=== PATIENT | male | born 1985 | race Caucasian/White ===

== ENCOUNTER 2025-09-08 11:16 | Observation (INO) ==
--- NOTE | 2025-09-08 12:01 | Emergency Department Note ---
Impression & Plan Cholecystitis, Umbilical hernia, Abdominal pain, Leukocytosis ED Provider Note NAME: CARLIE HURST AGE: 40 SEX: M : 1985 ARRIVES VIA: Walk-In INFORMANT: Patient ED PROVIDER(S): Coy Edward MD CHIEF COMPLAINT: Abdominal pain PLAN: Disposition: Admit MEDICAL DECISION MAKING: The patient is a pleasant 40-year-old gentleman with past medical history of umbilical hernia who presents to the emergency department, by his father for evaluation of abdominal pain with nausea and poor oral intake in setting of had increasing pain in his hernia site which has been protruding more than usual. Patient reports she has been moving his bowels daily with exception of today thus far. He denies vomiting. Denies fevers, cough, congestion. 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 On evaluation the patient no distress, afebrile with blood pressure 220s/150s with heart rate in the 100s in setting of discomfort and vital signs otherwise stable. Abdomen is soft and nondistended though does have protruding umbilical hernia which is soft without discoloration but with mild discomfort without discrete tenderness. Partial reduction of the hernia was achieved on initial assessment but hernia is still unable to be completely reduced. WBC 11K with neutrophilia but no left shift, nonspecific. H/H and platelets within normal limits. Chemistry without metabolic acidosis. Electrolytes and LFTs unremarkable. Lipase is not elevated. UA without evidence of infection. CT of the abdomen pelvis was completed and demonstrates gallbladder with wall thickening and Dennis cholecystic stranding/Dennis cholecystic fluid with several large gallstones within the lumen of the gallbladder. No definite biliary ductal dilatation by CT. Fat filled umbilical hernia is demonstrated without bowel involvement or obstruction. Upon reexamination the patient did report feeling improved in terms of the discomfort around his hernia but discrete right upper quadrant tenderness was more localizable. Antibiotic treatment for cholecystitis initiated with IV ceftriaxone and metronidazole. Case was discussed with Stephania Wu, general surgery PA-Js with Dr. Harman, general surgery on-call. Appreciate consultation. Patient will be admitted to the OR for surgery. Further management per general surgery. Triage Nursing notes reviewed and agree them. Prior/external medical records reviewed Vital Signs: reviewed Differential diagnosis: Appendicitis, testicular torsion, infections, diverticulitis, UTI, obstruction, mesenteric ischemia, aortic pathology, inflammatory bowel disease, renal colic, PUD, pancreatitis, biliary pathology, hernia, volvulus, constipation, as well as other pathologies. ER treatment provided: See below. Diagnostics interpreted by me: Cardiac Monitoring: An order for continuous cardiac monitoring was placed and demonstrated sinus tachycardia, 105 bpm, no ectopy. Laboratory studies: See below Imaging studies: See below Consultation(s): Stephania Wu, general surgery FABIANA with Dr. Harman, general surgery on-call. HPI: Per MDM. ROS: See above HPI for pertinent positives & negatives. A total of 10 systems reviewed and were otherwise negative. VITALS:See Below PHYSICAL EXAMINATION: GENERAL: Awake, alert, in no distress, BMI 39.3. HENT: Normocephalic, atraumatic. Oropharynx with dry mucous membranes and otherwise unremarkable. EYES: Normal conjunctiva. Sclera non-icteric. NECK: Supple. No nuchal rigidity. FROM. No JVD. RESPIRATORY: Clear to auscultation. CARDIAC: Tachycardic rate, normal rhythm. Extremities warm and well perfused. Pulses equal. ABDOMEN: Soft, non-distended, though does have protruding umbilical hernia which is soft without discoloration but with mild discomfort without discrete tenderness. Hernia is partially reducible. Right upper quadrant with point tenderness on reassessment. No guarding or rebound. MUSCULOSKELETAL: Chest examination reveals no tenderness. The back is symmetrical on inspection without obvious abnormality. There is no CVA tenderness to palpation. No joint edema. LOWER EXTREMITIES: Calves are equal size bilaterally and non-tender. No edema. No discoloration. NEURO: Normal sensorium. No sensory or motor deficits noted. SKIN: No rash or jaundice noted. Coy Edward MD Past Med/Surg History Problem List (Updated 09/08/25 @ 20:01 by Coy Edward MD) Leukocytosis (Acute) Abdominal pain (Acute) Cholecystitis (Acute) Umbilical hernia (Acute) Surgical History Hx of lithotripsy Family History Denies family history of Ovarian cancer Prostate cancer Myocardial infarction Breast cancer Colorectal cancer Social History Smoking Status: Never smoker Second Hand Exposure: Yes; Hx Alcohol Use: Yes Alcohol type: beer Alcohol Intake Frequency: 2-4 x/Month Hx Substance Use: No Preferred Language: [place] Communication Ability: Effective Visual Impairment: No Limitations Hearing Ability: Normal Roofing Laborer Required: No Beliefs That Will Affect Care: None marital status: Single Current Living Situation: Alone current occupational status: employed current occupation: [employer] How many Children do You have: 0 Feels Safe at Home: Yes Childhood Exposure to Second-Hand Smoke: Yes (mother smokes ) Diet: regular Diet Comment: regular caffeine: Yes during the past year weight has: remained stable Dental Care, Regularly: No Physical Activity Frequency: Daily Seatbelt Use: always Sunscreen Use: Yes Allergies Allergies Allergy/AdvReac Type Severity Reaction Status Date / Time codeine Allergy Unknown severe Verified 09/08/25 15:57 headache penicillin V Allergy Unknown itchy, Verified 09/08/25 15:57 hives as a child Home Meds Home Medications Medication Instructions Recorded Confirmed No Known Home Medications 01/28/23 09/08/25 Results & Data (ED) Vital Signs Vital Signs - 24 hr 09/08/25 11:20 09/08/25 12:14 09/08/25 12:14 Temperature 36.9 C Temperature Source Temporal Artery Scan Pulse Rate 105 H Pulse Rate [Apical] Pulse Rate [Right Finger] 80 Pulse Rhythm [Apical] Pulse Rhythm [Right Finger] Respiratory Rate 20 22 Respiratory Effort / Characteristics Non-Labored Spontaneous Respiratory Depth Normal Respiratory Pattern Blood Pressure 223/153 H Blood Pressure [Left Arm] Blood Pressure [Right Radial Artery] 192/132 H Blood Pressure Mean 176 Blood Pressure Mean [Left Arm] Blood Pressure Mean [Right Radial Artery] 152 Blood Pressure Position Sitting Blood Pressure Position [Left Arm] Pulse Oximetry 95 93 93 Oxygen Delivery Method Room Air Room Air Room Air Oxygen Flow Rate Sepsis Recent Fever Within 48 Hours No Sepsis New/Unexplained Change in Mental Status N/A Sepsis Action Taken by Nursing No Action Required 09/08/25 14:00 09/08/25 15:58 09/08/25 16:02 Temperature 37.2 C Temperature Source Oral Pulse Rate Pulse Rate [Apical] Pulse Rate [Right Finger] 88 94 H 89 Pulse Rhythm [Apical] Pulse Rhythm [Right Finger] Regular Respiratory Rate 16 20 20 Respiratory Effort / Characteristics Non-Labored Spontaneous Normal for Patient Respiratory Depth Normal Respiratory Pattern Regular Blood Pressure Blood Pressure [Left Arm] 187/127 H 174/113 H Blood Pressure [Right Radial Artery] 171/113 H Blood Pressure Mean Blood Pressure Mean [Left Arm] 147 133 Blood Pressure Mean [Right Radial Artery] 132 Blood Pressure Position Blood Pressure Position [Left Arm] Semi-fowlers Pulse Oximetry 96 95 96 Oxygen Delivery Method Room Air Room Air Room Air Oxygen Flow Rate Sepsis Recent Fever Within 48 Hours Sepsis New/Unexplained Change in Mental Status Sepsis Action Taken by Nursing 09/08/25 18:43 Temperature 37.3 C Temperature Source Temporal Artery Scan Pulse Rate Pulse Rate [Apical] 84 Pulse Rate [Right Finger] Pulse Rhythm [Apical] Regular Pulse Rhythm [Right Finger] Respiratory Rate 21 Respiratory Effort / Characteristics Non-Labored Spontaneous Respiratory Depth Normal Respiratory Pattern Regular Blood Pressure Blood Pressure [Left Arm] 127/91 Blood Pressure [Right Radial Artery] Blood Pressure Mean Blood Pressure Mean [Left Arm] 103 Blood Pressure Mean [Right Radial Artery] Blood Pressure Position Blood Pressure Position [Left Arm] Pulse Oximetry 94 Oxygen Delivery Method Oxymask Oxygen Flow Rate 12 Sepsis Recent Fever Within 48 Hours Sepsis New/Unexplained Change in Mental Status Sepsis Action Taken by Nursing Laboratory Data Attestation: I reviewed the patient's lab results. 09/08/25 11:38 09/08/25 11:38 Lab Results 09/08/25 09/08/25 Range/Units 11:38 13:24 WBC 11.03 H (4.8-10.8) K/ul RBC 5.19 (4.70-6.10) M/uL Hgb 15.8 (14.0-18.0) g/dL Hct 43.7 (42.0-52.0) % MCV 84.2 (80.0-100.0) fL MCH 30.4 (25.0-34.0) pg MCHC 36.2 H (32.0-36.0) g/dL RDW Std Deviation 35.8 L (36.4-46.3) fL RDW Coeff of Cristino 11.8 (11.5-14.5) % Plt Count 298 (130-400) K/uL MPV 9.5 (9.4-12.4) fL Immature Gran % (Auto) 0.3 % Neut % (Auto) 78.3 % Lymph % (Auto) 10.4 % [place] % (Auto) 9.1 % Eos % (Auto) 1.5 % Baso % (Auto) 0.4 % Neut # (Auto) 8.65 H (1.40-6.50) K/uL Lymph # (Auto) 1.15 L (1.20-3.40) K/uL [place]oup # (Auto) 1.00 H (0.11-0.59) K/uL Eos # (Auto) 0.16 (0.00-0.50) K/uL Baso # (Auto) 0.04 (0.00-0.20) K/uL Immature Gran # (Auto) 0.03 (0.01-0.20) K/uL PT 11.0 (9.0-12.0) Seconds INR 1.0 (0.9-1.1) Sodium 137 (136-145) mmol/L Potassium 3.7 (3.5-5.1) mmol/L Chloride 100 (98-107) mmol/L Carbon Dioxide 27 (21-32) mmol/L Anion Gap 10 (3-11) BUN 9 (6-23) mg/dl Creatinine 0.70 (0.6-1.4) mg/dl Est Cr Clr Drug Dosing 185.5 ml/min eGFR 119.46 BUN/Creatinine Ratio 12.9 (10-20) Glucose 122 H (70-99(Fasting)) mg/dl Calcium 9.5 (8.6-10.3) mg/dl Total Bilirubin 0.9 (0.2-1.0) mg/dl AST 19 (13-39) U/L ALT 25 (7-52) U/L Alkaline Phosphatase 82 (34-104) U/L Total Protein 8.2 (6.0-8.3) gm/dl Albumin 4.4 (3.4-5.0) gm/dl Globulin 3.8 (2.5-4.0) gm/dl Albumin/Globulin Ratio 1.2 (0.9-2) Lipase 5 L (11-82) U/L Urine Color Yellow Urine Appearance Clear (Clear) Urine pH 6.5 (4.5-7.5) Ur Specific [place] 1.013 (1.000-1.030) Urine Protein Trace H (Negative) Urine Glucose (UA) Negative (Negative) Urine Ketones 2+ H (Negative) Urine Blood 2+ H (Negative) Urine Nitrite Negative (Negative) Urine Bilirubin Negative (Negative) Urine Urobilinogen Negative (Negative) Ur Leukocyte Esterase Negative (Negative) Urine WBC (Auto) 0-5 (0-5) /hpf Urine RBC (Auto) 6-10 H (0-2) /hpf U Hyaline Cast (Auto) 0-2 (0-2) /lpf U Epithel Cells (Auto) 0-2 (0-2) /hpf Urine Bacteria (Auto) None Seen (None Seen) Urine Comment Administered Medications Discontinued Medications Bupivacaine HCl (Bupivacaine 0.5 % 5 Mg/1 Ml Mpf 30ml Vial) Confirm Administered Dose 30 ml .ROUTE .STK-MED ONE Stop: 09/08/25 16:27 Last Admin: 09/08/25 18:23 Dose: 30 ml Documented By: DARBY Bupivacaine Liposome (Bupivacaine Liposome 1.3% 266 Mg/20 Ml Vial) Confirm Administered Dose 266 mg .ROUTE .STK-MED ONE Stop: 09/08/25 18:18 Last Admin: 09/08/25 18:23 Dose: 266 mg Documented By: DARBY Sodium Chloride (Nss) 1,000 mls @ 999 mls/hr IV .Q1H1M ONE Stop: 09/08/25 12:57 Last Infusion: 09/08/25 13:22 Dose: Infused Documented By: Admin: 09/08/25 12:10 Dose: 999 mls/hr Documented By: SANTA Acetaminophen (Ofirmev) 1,000 mg in 100 mls @ 400 mls/hr IV NOW STA Stop: 09/08/25 12:11 Last Infusion: 09/08/25 13:22 Dose: Infused Documented By: Admin: 09/08/25 12:10 Dose: 400 mls/hr Documented By: SANTA Ceftriaxone Sodium (Rocephin) 2,000 mg in 50 mls @ 100 mls/hr IV NOW STA Stop: 09/08/25 14:55 Last Infusion: 09/08/25 17:11 Dose: Infused Documented By: Admin: 09/08/25 14:36 Dose: 100 mls/hr Documented By: SANTA Metronidazole (Flagyl) 500 mg in 100 mls @ 100 mls/hr IV NOW STA; Protocol Stop: 09/08/25 15:25 Last Infusion: 09/08/25 16:05 Dose: Infused Documented By: HBJesus Admin: 09/08/25 15:05 Dose: 100 mls/hr Documented By: CHAIM Lactated Ringer's (Lr) 1,000 mls @ 125 mls/hr IV .Q8H MARTÍN Stop: 09/11/25 14:44 Last Infusion: 09/08/25 19:43 Dose: Infused Documented By: Admin: 09/08/25 15:05 Dose: 125 mls/hr Documented By: CHAIM Indocyanine Green (Indocyanine Green 25 Mg Vial) 2.5 mg INJ ONE ONE Stop: 09/08/25 15:32 Last Admin: 09/08/25 15:48 Dose: 2.5 mg Documented By: HARIS Ioversol (Optiray 320 100ml) 94 ml IV ONCE ONE Stop: 09/08/25 13:36 Last Admin: 09/08/25 13:35 Dose: 94 ml Documented By: DANITA Morphine Sulfate (Morphine Sulfate 2 Mg/Ml Carp) 2 mg IV NOW STA Stop: 09/08/25 14:36 Last Admin: 09/08/25 19:43 Dose: Not Given Documented By: REBEKAH Ondansetron HCl (Ondansetron Inj 2 Mg/Ml 2 Ml Vial) 4 mg IV NOW STA Stop: 09/08/25 11:58 Last Admin: 09/08/25 12:10 Dose: 4 mg Documented By: SANTA Imaging Data Radiologist's Impression: Abdomen/Pelvis CT 09/08/25 11:[address] WITH IV CONTRAST CT DOSE: 1566.53 mGy.cm HISTORY: Acute generalized abdominal pain abd pain, umb hernia TECHNIQUE: Multiaxial CT images of the abdomen and pelvis were performed following the IV administration of 94 cc of Optiray, A dose lowering technique was utilized adhering to the principles of ALARA. COMPARISON STUDY: CT 11/25/2010 FINDINGS: Heart is upper limits of normal in size. There is mild nonspecific right hilar and subcarinal lymphadenopathy with lymph nodes measuring up to 11 mm. There is mild bibasilar atelectasis along with mild patchy subsegmental nodular consolidative foci. Probable mild fibrosis of the right lung base. No pneumatosis or pneumoperitoneum identified. Unremarkable spleen, pancreas and adrenal glands. Hepatic steatosis. Subcentimeter probable cyst of the hepatic dome. Patent portal vein. The gallbladder demonstrates wall thickening with pericholecystic stranding/trace pericholecystic fluid. There are several large gallstones within the lumen of the gallbladder. There is no definite biliary ductal dilation. Unremarkable kidneys. There is no hydronephrosis. There is mild urinary bladder wall thickening with partial distention. Probable small fat filled inguinal hernias. Fat filled umbilical hernia demonstrates opening of 3.2 cm's. Mild atherosclerosis of the aorta. 9 mm celiac trunk lymph node on image 113 series 3. No bowel obstruction or bowel wall thickening. Colonic diverticulosis without acute diverticulitis. Normal appendix. Unremarkable soft tissues. No acute fracture. IMPRESSION: 1. Cholelithiasis with findings suggestive of acute cholecystitis. 2. No biliary ductal dilation. 3. No bowel obstruction or bowel wall thickening. Normal appendix. 4. Mild bibasilar opacities are likely infectious or inflammatory. Follow-up recommended. 5. Small fat filled umbilical hernia. 6. Additional findings as above. ACT 112: Negative or not required by law. The above report was generated using voice recognition software. It may contain grammatical, syntax or spelling errors. Electronically signed by: Darien Varela M.D. 09/08/2025 1:55 PM Discharge Plan Visit Data Chief Complaint: Abdominal Pain Stated Complaint: STOMACH PAIN LAST COUPLE DAYS, WORSE, HAVE HERNIA ED Provider: Coy Edward Discharge Problem: Cholecystitis, Umbilical hernia, Abdominal pain, Leukocytosis Patient Disposition: Admitted As Inpatient Condition: Fair Discharge Instructions Interventions: ED Discharge Assessment Last Done: 09/08/25 15:36 Discharge Problem: Umbilical hernia Qualifiers: Obstruction and gangrene presence: without obstruction or gangrene Qualified Code(s): K42.9 - Umbilical hernia without obstruction or gangrene Abdominal pain Qualifiers: Abdominal location: unspecified location Qualified Code(s): R10.9 - Unspecified abdominal pain Leukocytosis Qualifiers: Leukocytosis type: unspecified Qualified Code(s): D72.829 - Elevated white blood cell count, unspecified
[2025-09-08] MEDS: ONDANSETRON INJ 2 MG/ML 2 ML VIAL IV STA (12:10)
[2025-09-08] MEDS: SODIUM CHLORIDE 0.9% 1,000 ML IV ONE (12:10)
[2025-09-08] MEDS: ACETAMINOPHEN 1,000 MG/100 ML VIAL IV STA (12:10)
[2025-09-08 12:12] LABS: Hematocrit (blood only) 43.7 % (42.0-52.0); Hemoglobin 15.8 g/dL (14.0-18.0); Immature Granulocytes # (auto) 0.03 K/uL (0.01-0.20); Immature Granulocytes % (auto) 0.3 %; Mean Corpuscular Hemoglobin 30.4 pg (25.0-34.0); Mean Corpuscular Volume 84.2 fL (80.0-100.0); Platelet Count 298 K/uL (130-400); RDW Standard Deviation 35.8 fL (36.4-46.3); Red Blood Count 5.19 M/uL (4.70-6.10); White Blood Count 11.03 K/ul (4.8-10.8)
[2025-09-08 12:43] LABS: Alanine Aminotransferase 25.0 U/L (7-52); Albumin Globulin Ratio 1.2 (0.9-2); Albumin Level 4.4 gm/dl (3.4-5.0); Alkaline Phosphatase 82.0 U/L (34-104); Anion Gap 10.0 (3-11); Bilirubin,Total 0.9 mg/dl (0.2-1.0); Blood Urea Nitrogen 9.0 mg/dl (6-23); Calcium 9.5 mg/dl (8.6-10.3); Carbon Dioxide 27.0 mmol/L (21-32); Chloride 100.0 mmol/L (98-107); Creatinine Clr Calc Pharmacy 185.5 ml/min; Globulin 3.8 gm/dl (2.5-4.0); Glucose 122.0 mg/dl (70-99(Fasting)); Lipase 5.0 U/L (11-82); Potassium 3.7 mmol/L (3.5-5.1); Sodium 137.0 mmol/L (136-145); Total Protein 8.2 gm/dl (6.0-8.3)
[2025-09-08 12:46] LABS: INR 1.0 (0.9-1.1); Prothrombin Time 11.0 Seconds (9.0-12.0)
[2025-09-08] MEDS: OPTIRAY 320 100ml IV ONE (13:35)
[2025-09-08 13:39] LABS: Appearance Urine Clear (Clear); Bacteria Urine Automated None Seen (None Seen); Cast Urine Automated 0-2 /lpf (0-2); Epithelial Cell Urine Auto 0-2 /hpf (0-2); Glucose Urine UA Negative (Negative); WBC Urine Automated 0-5 /hpf (0-5)
--- NOTE | 2025-09-08 13:56 | CT Scan Report ---
ABDOMEN AND PELVIS CT WITH IV CONTRAST CT DOSE: 1566.53 mGy.cm HISTORY: Acute generalized abdominal pain abd pain, umb hernia TECHNIQUE: Multiaxial CT images of the abdomen and pelvis were performed following the IV administrat ion of 94 cc of Optiray, A dose lowering technique was utilized adhering to the principles of ALARA. COMPARISON STUDY: CT 11/25/2010 FINDINGS: Heart is upper limits of normal in size. There is mild nonspecific right hilar and subcarin al lymphadenopathy with lymph nodes measuring up to 11 mm. There is mild bibasilar atelectasis along with mild patchy subsegmental nodular consolidative foci. Probable mild fibrosis of the right lung ba se. No pneumatosis or pneumoperitoneum identified. Unremarkable spleen, pancreas and adrenal glands. Hepatic steatosis. Subcentimeter probable cyst of t he hepatic dome. Patent portal vein. The gallbladder demonstrates wall thickening with pericholecysti c stranding/trace pericholecystic fluid. There are several large gallstones within the lumen of the g allbladder. There is no definite biliary ductal dilation. Unremarkable kidneys. There is no hydronephrosis. There is mild urinary bladder wall thickening with partial distention. Probable small fat filled inguinal hernias. Fat filled umbilical hernia [place] opening of 3.2 cm's. Mild atherosclerosis of the aorta. 9 mm celiac trunk lymph node on image 113 series 3. No bowel obstruction or bowel wall thickening. Colonic diverticulosis without acute divert iculitis. Normal appendix. Unremarkable soft tissues. No acute fracture. IMPRESSION: 1. Cholelithiasis with findings suggestive of acute cholecystitis. 2. No biliary ductal dilation. 3. No bowel obstruction or bowel wall thickening. Normal appendix. 4. Mild bibasilar opacities are likely infectious or inflammatory. Follow-up recommended. 5. Small fat filled umbilical hernia. 6. Additional findings as above. ACT 112: Negative or not required by law. The above report was generated using voice recognition software. It may contain grammatical, syntax o r spelling errors. Electronically signed by: Darien Varela M.D. 09/08/2025 1:55 PM
[2025-09-08] MEDS: cefTRIAXone SODIUM 2,000 MG/50 ML BAG IV STA (14:36)
--- NOTE | 2025-09-08 14:37 | History & Physical Report ---
Date of Service September 08, 2025 Assessment & Plan (1) Cholecystitis: Plan: This is a 40yM with no significant PMH who presents to the [facility] ED on 09/08/25 with complaints of abdominal pain over the last several days, worsening in character. He underwent a CT a/p that showed cholelithiasis with findings suggestive of acute cholecystitis, no biliary ductal dilation, and a small fat containing umbilical hernia. In the ER blood work shows WBC 11, Hbg 15.8, Tb 0.9 and other LFTs within normal limits. Patient is afebrile with HRs in the 80s and hypertensive. On exam patient is resting in the stretcher in no distress. Abdomen soft, maybe mildly distended with tenderness to palpation in the RUQ regions. + soft umbilical hernia, partially reducible contents, mild pain with manipulation. Given history, imaging and exam he appears to be suffering from acute cholecystitis. We will obtain a RUQ US for further evaluation. We have tentatively added the patient on to the OR schedule for robotic cholecystectomy. Keep NPO, IVF, and start pre-op abx. Discussed with patient he should follow up with his PCP for elevated blood pressure if continues to be elevated throughout his stay. History of Present Illness Primary Care Provider: ANNETTA Kim This is a 40yM with no significant PMH who presents to the [facility] ED on 09/08/25 with complaints of abdominal pain. Patient states it started 3 days ago and was in the general abdomen maybe worse in the right upper side. This was associated with nausea, but no emesis. Due to the worsening pain he presented to the ER for further evaluation. He underwent a CT a/p that showed cholelithiasis with findings suggestive of acute cholecystitis, no biliary ductal dilation, and a small fat containing umbilical hernia. The patient denies any fevers/chills, CP/SOB. This pain has never happened to him before. He has no issues with fatty/greasy/spicy foods in the past. He last ate a sandwich this morning at 3am and had some jello around 8am. No abdominal surgical history. Has a known umbilical hernia that he believes was becoming a little more firm and protruding but not necessarily the site of the pain. He has been passing gas and last BM was yesterday. 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 Allergies Allergy/AdvReac Type Severity Reaction Status Date / Time codeine Allergy Unknown . Verified 02/26/23 15:28 penicillin V Allergy Unknown . Verified 02/26/23 15:28 Home Medications Medication Instructions Recorded Confirmed Type No Known Home Medications 01/28/23 02/26/23 History Past Med/Surg History Problem List Cholecystitis Umbilical hernia Surgical History Hx of lithotripsy Family History Denies family history of Ovarian cancer Prostate cancer Myocardial infarction Breast cancer Colorectal cancer Social History Smoking Status: Never smoker Second Hand Exposure: Yes; Hx Alcohol Use: Yes Alcohol type: beer Alcohol Intake Frequency: 2-4 x/Month Hx Substance Use: No Preferred Language: Azeri Communication Ability: Effective Visual Impairment: No Limitations Hearing Ability: Normal Waste Treatment Operator Required: No Beliefs That Will Affect Care: None marital status: Single Current Living Situation: Alone current occupational status: employed current occupation: [employer] How many Children do You have: 0 Feels Safe at Home: Yes Childhood Exposure to Second-Hand Smoke: Yes (mother smokes ) Diet: regular Diet Comment: regular caffeine: Yes during the past year weight has: remained stable Dental Care, Regularly: No Physical Activity Frequency: Daily Seatbelt Use: always Sunscreen Use: Yes Review of Systems Constitutional: no fever and no chills Respiratory: no dyspnea Cardiovascular: no chest pain Gastrointestinal: + abdominal pain (RUQ/ epigastric) and + nausea; no vomiting, no change in bowel habits and no blood in stools + umbilical hernia Physical Exam Physical Exam: awake/alert, no distress Constitutional: well developed, well nourished and + obese; no acute distress Respiratory: normal respiratory effort Gastrointestinal (Abdomen): Percussion/Palpation: + abdomen tender (ttp in the RUQ) and abdomen soft + soft umbilical hernia, partially reduc ible contents, mild pain with manipulation Results & Data Results & Data Vital Signs (Past 12 Hours) Vital Signs Temp Pulse Pulse Resp BP BP Pulse Ox 09/08/25 12:14 93 09/08/25 12:14 80 22 192/132 H 93 09/08/25 11:20 98.4 F 105 H 20 223/153 H 95 O2 Del Method 09/08/25 12:14 Room Air 09/08/25 12:14 Room Air 09/08/25 11:20 Room Air Diagnostic Findings ABDOMEN AND PELVIS CT WITH IV CONTRAST CT DOSE: 1566.53 mGy.cm HISTORY: Acute generalized abdominal pain abd pain, umb hernia TECHNIQUE: Multiaxial CT images of the abdomen and pelvis were performed following the IV administration of 94 cc of Optiray, A dose lowering technique was utilized adhering to the principles of ALARA. COMPARISON STUDY: CT 11/25/2010 FINDINGS: Heart is upper limits of normal in size. There is mild nonspecific right hilar and subcarinal lymphadenopathy with lymph nodes measuring up to 11 mm. There is mild bibasilar atelectasis along with mild patchy subsegmental nodular consolidative foci. Probable mild fibrosis of the right lung base. No pneumatosis or pneumoperitoneum identified. Unremarkable spleen, pancreas and adrenal glands. Hepatic steatosis. Subcentimeter probable cyst of the hepatic dome. Patent portal vein. The gallbladder demonstrates wall thickening with pericholecystic stranding/trace pericholecystic fluid. There are several large gallstones within the lumen of the gallbladder. There is no definite biliary ductal dilation. Unremarkable kidneys. There is no hydronephrosis. There is mild urinary bladder wall thickening with partial distention. Probable small fat filled inguinal hernias. Fat filled umbilical hernia demonstrates opening of 3.2 cm's. Mild atherosclerosis of the aorta. 9 mm celiac trunk lymph node on image 113 series 3. No bowel obstruction or bowel wall thickening. Colonic diverticulosis without acute diverticulitis. Normal appendix. Unremarkable soft tissues. No acute fracture. IMPRESSION: 1. Cholelithiasis with findings suggestive of acute cholecystitis. 2. No biliary ductal dilation. 3. No bowel obstruction or bowel wall thickening. Normal appendix. 4. Mild bibasilar opacities are likely infectious or inflammatory. Follow-up recommended. 5. Small fat filled umbilical hernia. 6. Additional findings as above. ACT 112: Negative or not required by law. The above report was generated using voice recognition software. It may contain grammatical, syntax or spelling errors. Electronically signed by: Darien Varela M.D. 09/08/2025 1:55 PM Supervising Physician Co-Signing Physician Notes Patient seen and examined, labs and imaging reviewed, agree with above. 40-year-old male presented with signs symptoms of cholelithiasis with acute cholecystitis confirmed by CT scan and ultrasound. Tender to palpation in the right upper quadrant. Afebrile with stable vitals. Partially reducible fat- containing umbilical hernia. CT scan personally viewed interpreted and agree with the assessment of cholelithiasis with gallbladder distention and Dennis cholecystic fluid consistent with acute cholecystitis. cholelithiasis with acute cholecystitis plan for laparoscopic cholecystectomy risks discussed to include but not limited to bleeding, infection, retained stone, bile leak, open surgery, damage to surrounding structures including bile duct, need for future or more extensive surgery, failure to treat symptoms, and risks of anesthesia. PG Care Time/CCT Total # of Minutes Spent Total Time Spent with Patient: Total time spent is greater than 50% in coordination of care (as documented) at patient's floor/unit and/or counseling patient: Coding Level of Care Code 44811 INT INP/OBS CARE MIN Diagnoses Cholecystitis K81.9
[2025-09-08] MEDS: metroNIDAZOLE 500 MG/100 ML BAG IV STA (15:05)
[2025-09-08] MEDS: LACTATED RINGER'S 1,000 ML IV SCH (15:05)
--- NOTE | 2025-09-08 15:29 | Anesthesiology Consultation ---
Date of Service September 08, 2025 Assessment & Plan Chart Review Chart Review: Acceptable Risk for Surgery, Patient NOT seen in Pre Admission Testing and supervisor stage carpentry initiated Consults Requested none History Surgery Operation Date: 09/08/25 12:15 Proposed Procedures p Robotic Laparoscopic Cholecystectomy - Saleem Harman DO, FACS Height/Weight Height: 5 ft 10 in Weight: 124.2 kg Allergies Allergy/AdvReac Type Severity Reaction Status Date / Time codeine Allergy Unknown . Verified 02/26/23 15:28 penicillin V Allergy Unknown . Verified 02/26/23 15:28 Medications Home Medications Medication Instructions Recorded Confirmed Last Taken No Known Home Medications 01/28/23 02/26/23 Unknown Active Medications Generic Name Dose Route Start Last Admin Trade Name Freq PRN Reason Stop Dose Admin Lactated Ringer's 1,000 mls @ 125 mls/hr 09/08/25 14:45 09/08/25 15:05 Lr IV 09/11/25 14:44 125 mls/hr .Q8H MARTÍN Administration Past Family History Family History Denies family history of Ovarian cancer Prostate cancer Myocardial infarction Breast cancer Colorectal cancer Past Surgical History Surgical History Hx of lithotripsy Social History Smoking Status: Never smoker Hx Alcohol Use: Yes Alcohol type: beer Hx Substance Use: No Physical Exam Vital Signs Last Vital Signs Temp 36.9 C 09/08/25 11:20 Pulse 88 09/08/25 14:00 Resp 16 09/08/25 14:00 BP 171/113 H 09/08/25 14:00 Pulse Ox 96 09/08/25 14:00 O2 Del Method Room Air 09/08/25 14:00 Testing Laboratory Results 09/08/25 11:38 09/08/25 11:38 PT 11.0 Seconds (9.0-12.0) 09/08/25 11:38 INR 1.0 (0.9-1.1) 09/08/25 11:38 Urine Color Yellow 09/08/25 13:24 Urine Appearance Clear (Clear) 09/08/25 13:24 Urine pH 6.5 (4.5-7.5) 09/08/25 13:24 Ur Specific [place] 1.013 (1.000-1.030) 09/08/25 13:24 Urine Protein Trace (Negative) H 09/08/25 13:24 Urine Glucose (UA) Negative (Negative) 09/08/25 13:24 Urine Ketones 2+ (Negative) H 09/08/25 13:24 Urine Nitrite Negative (Negative) 09/08/25 13:24 Ur Leukocyte Esterase Negative (Negative) 09/08/25 13:24 Urine WBC (Auto) 0-5 /hpf (0-5) 09/08/25 13:24 Urine RBC (Auto) 6-10 /hpf (0-2) H 09/08/25 13:24 U Hyaline Cast (Auto) 0-2 /lpf (0-2) 09/08/25 13:24 U Epithel Cells (Auto) 0-2 /hpf (0-2) 09/08/25 13:24 Urine Bacteria (Auto) None Seen (None Seen) 09/08/25 13:24
[2025-09-08] MEDS: INDOCYANINE GREEN 25 MG VIAL INJ ONE (15:48)
[2025-09-08] MEDS ORDERED: MIDAZOLAM HCL 1 MG/ML 2ML VIAL ONE (16:12)
[2025-09-08] MEDS ORDERED: GLYCOPYRROLATE 0.2 MG/ML VIAL ONE (16:12)
[2025-09-08] MEDS ORDERED: ONDANSETRON INJ 2 MG/ML 2 ML VIAL ONE (16:12)
[2025-09-08] MEDS ORDERED: LIDOCAINE 2% 2 ML VIAL/AMP(20MG/ML) INFIL ONE (16:12)
[2025-09-08] MEDS ORDERED: DEXAMETHASONE SOD INJ 4 MG/ML VIAL ONE (16:12)
[2025-09-08] MEDS ORDERED: PROPOFOL IV EMULSION 10 MG/ML 20 ML VIAL IV ONE (16:12)
[2025-09-08] MEDS ORDERED: ROCURONIUM BROMIDE 10 MG/ML 5 ML VIAL IV ONE (16:12)
[2025-09-08] MEDS ORDERED: SUGAMMADEX SODIUM 200 MG/2 ML VIAL IV ONE (16:16)
[2025-09-08] MEDS ORDERED: ONDANSETRON INJ 2 MG/ML 2 ML VIAL IV PRN ×2 (16:19→19:38)
[2025-09-08] MEDS ORDERED: ATROPINE SULFATE 0.1 MG/ML 10ML SYR IV PRN (16:19)
[2025-09-08] MEDS ORDERED: METOPROLOL TARTRATE 1 MG/ML VIAL IV ONE (17:26)
[2025-09-08] MEDS ORDERED: LABETALOL HCL IV 5 MG/ML 20ML IV ONE (17:26)
[2025-09-08] MEDS: BUPIVACAINE LIPOSOME 1.3% 266 MG/20 ML VIAL ONE (18:23)
[2025-09-08] MEDS: BUPIVACAINE 0.5 % 5 MG/1 ML MPF 30ML VIAL ONE (18:23)
--- NOTE | 2025-09-08 18:25 | Operative Report ---
PG Post Operative Report Pre & Post Diagnosis Operation Date: 09/08/25 12:15 Pre-Op Diagnosis: Cholecystitis Post-Op Diagnosis: Cholecystitis I identified the patient and participated in the time-out.: Yes Procedure Operation Date: 09/08/25 12:15 Actual Procedures p Robotic Assisted Laparoscopic Cholecystectomy(Not Applicable) - Saleem Harman DO, MARGOT Surgeon Saleem Harman DO, FACS Escrow Officer Tarun Johansen Estimated Blood Loss 5 Findings Consistent with Post-Op Diagnosis Acute on chronic cholecystitis, 2 very large gallstones. Critical view of safety obtained, cystic duct and artery doubly clipped and divided. Extraction site fascial incision extended, closed with multiple [id number] 0 Vicryl sutures. Exparel injected. Specimens Gallbladder Anesthesia Type General Complications none Disposition Accompanied Patient To Recovery: No Disposition: Recovery Room Indications 40-year-old male with cholelithiasis and acute cholecystitis, plan for laparoscopic cholecystectomy. The risks of the procedure were discussed, all questions were answered, and the patient agreed to proceed with surgery as planned. Description of Procedure The patient was properly identified, consented, and taken to the operating room where he was placed in the supine position. 2.5 mg of indocyanine green were administered IV approximately 45 min prior to the surgery. General endotracheal anesthesia was induced. SCDs and a safety belt were placed. Preoperative antibiotics were administered. The patient's abdomen was prepped and draped in the standard sterile fashion. A surgical timeout was performed and all parties were in agreement that this was the correct patient and procedure to be performed and we continued as planned. An incision was made just above the umbilicus and to the left of midline. Veress needle was inserted and saline drop test confirmed entry to the abdomen. The abdomen was insufflated with carbon dioxide which the patient tolerated incident. Veress needle was removed and the abdomen is entered using the Optiview technique and a 5 mm camera. The introducer was removed and the abdomen inspected. No damage from initial trocar placement or Veress needle placement was identified. There were no significant abnormalities to the 4 quadrants of the abdomen. 8 mm robotic ports were then placed on the left and right. An additional 5 mm dam tender assistant port was placed in the lateral right subcostal position. The patient was placed in reverse Trendelenburg position and rotated towards the left. The robot was then docked and the camera and robotic instruments were inserted. The gallbladder was distended and acutely and chronically inflamed. The inflammation was moderate. The gallbladder was decompressed to allow for retraction. The dome of the gallbladder was grasped by the dam tender assistant and retracted towards the left upper quadrant and the infundibulum was retracted toward the right lower quadrant revealing Calot's triangle. There were 2 large gallstones that filled the majority the gallbladder. Peritoneal attachments were taken down with electrocautery and blunt dissection. The cystic duct and artery were circumferentially dissected. A window of safety was obtained showing the cystic duct entering the gallbladder with no aberrant structures noted. We were able to identify the cystic duct utilizing the ICG. The cystic duct and artery were doubly clipped and divided. The gallbladder was then lifted off the gallbladder fossa with electrocautery. The right upper quadrant was irrigated and hemostasis was found to be good. The gallbladder was placed in an Endo Catch bag and removed through the one of the port sites. The fascia and skin of the extraction site had to be lengthened to remove the gallbladder and large stones. The instruments were removed and the robot was undocked. The trochars were removed and the abdomen was allowed to collapse. The fascia of th e extraction site was closed with multiple interrupted [id number] 0 Vicryl sutures. Exparel mixed with 0.5% Marcaine was injected at the incisions and in the fascia. The wound was irrigated. The skin of all ports was closed with 4-0 Monocryl subcuticular sutures. Dermabond was placed over the wounds. The patient was extubated in the operating room and taken to the PACU where he recovered without apparent incident. All sponge, instrument and needle counts were correct at the conclusion of the procedure. The patient tolerated the procedure well. The physician's dam tender assistant was present and scrubbed for the entirety of the case and was essential in positioning the patient, prepping and draping, retraction and exposure, driving the laparoscope, exchange of the robotic instruments rem oval of the gallbladder, closure of the incisions, and placement of the dressings. I attest to the content of the Intraoperative Record and any orders documented therein. Any exceptions are noted below.
--- NOTE | 2025-09-08 19:19 | Anesthesiology Progress Note ---
Date of Service September 08, 2025 Anesthesia Post Procedure Vital Signs Vital Signs: Temp Pulse Pulse Pulse Resp BP BP 09/08/25 19:15 97.7 F 79 14 138/93 09/08/25 19:10 80 14 135/96 09/08/25 19:00 84 19 133/85 09/08/25 18:50 83 20 124/80 09/08/25 18:43 99.1 F 84 21 127/91 09/08/25 16:02 89 20 174/113 H 09/08/25 15:58 99.0 F 94 H 20 187/127 H 09/08/25 14:00 88 16 09/08/25 12:14 09/08/25 12:14 80 22 09/08/25 11:20 98.4 F 105 H 20 223/153 H BP Pulse Ox O2 Del Method O2 Flow Rate 09/08/25 19:15 93 Nasal Cannula 3 09/08/25 19:10 93 Nasal Cannula 4 09/08/25 19:00 93 Oxymask 4 09/08/25 18:50 93 Oxymask 12 09/08/25 18:43 94 Oxymask 12 09/08/25 16:02 96 Room Air 09/08/25 15:58 95 Room Air 09/08/25 14:00 171/113 H 96 Room Air 09/08/25 12:14 93 Room Air 09/08/25 12:14 192/132 H 93 Room Air 09/08/25 11:20 95 Room Air Pain Intensity Abdomen: Pain Intensity: 4 Transfer of Care Handoff Completed per policy Notes Mental Status: alert / awake / arousable and participated in evaluation Patient Amnestic to Procedure: Yes Nausea / Vomiting: adequately controlled Pain: adequately controlled Airway Patency, RR, SpO2: stable & adequate BP & HR: stable & adequate Hydration State: stable & adequate Anesthetic Complications: no major complications apparent and Pt Satisfied with anesthetic care
[2025-09-08] MEDS ORDERED: MoRPHine SULFATE 4 MG/ML 1 ML CARP\\VIAL IV PRN (19:38)
[2025-09-08] MEDS: MoRPHine SULFATE 2 MG/ML CARP IV STA (19:43)
[2025-09-08] MEDS: ACETAMINOPHEN 500 MG TAB PO SCH (21:46)
--- NOTE | 2025-09-09 09:30 | Surgery Progress Note ---
Date of Service September 09, 2025 Assessment & Plan (1) Cholecystitis: Plan: POD#1 robot lap sugar Vitals stable Patient clinically feeling well Tolerating clears, will advance to regular anticipate discharge to home today, d/c instructions reviewed f/u in the office in [address] hoover Admission and Anticipated Discharge Date Admission Date: September 08, 2025 Supervising Physician Co-Signing Physician Notes Patient seen and examined, agree with above. POD #1 robotic cholecystectomy for acute cholecystitis, feels better than prior to surgery. On exam he is afebrile with stable vitals. His abdomen is soft, appropriately tender to palpation, incisions with Dermabond. Advance to regular diet, DC to home if tolerates. Wound care instructions and activity restrictions reviewed. APAP/and/or NSAIDs as needed pain, oxycodone Rx for breakthrough pain. Follow-up with me in 2 weeks. Return precautions given, call clinic with questions or concerns Subjective Patient feeling well. Pain is tolerable. On clears without nausea/vomiting. Doing well. Physical Exam Physical Exam: awake/alert, no distress Gastrointestinal (Abdomen): Inspection/Auscultation: + abdomen distended (mild) and + abdominal surgical incision (c/d/i with dermabond, no signs of infection) Percussion/Palpation: + abdomen tender (mild lee incisional discomfort) and abdomen soft Results & Data Vital Signs (Past 12 Hours) Vital Signs Temp Pulse Pulse Resp BP Pulse Ox O2 Del Method 09/09/25 07:26 98.1 F 92 H 19 158/96 H 93 Room Air 09/09/25 05:59 144/90 H 09/09/25 03:38 98.1 F 96 H 16 166/104 H 97 Nasal Cannula 09/08/25 22:33 97.9 F 83 16 146/87 H 94 Nasal Cannula 09/08/25 21:47 97.9 F 79 18 138/91 94 Room Air 09/08/25 21:35 97.7 F 78 16 119/82 94 Room Air O2 Flow Rate 09/09/25 07:26 09/09/25 05:59 09/09/25 03:38 2 09/08/25 22:33 2 09/08/25 21:47 09/08/25 21:35 PG Care Time/CCT Total # of Minutes Spent Total Time Spent with Patient: Total time spent is greater than 50% in coordination of care (as documented) at patient's floor/unit and/or counseling patient: Coding Level of Care Code 16494 Post Operative Follow-Up Diagnoses Cholecystitis K81.9
[2025-09-09 11:53] VITALS: BP 162/92; PULSE 96; RESP 16; TEMP 98.8; O2SAT 95
== END 2025-09-09 13:45 | disposition home or self-care (01) ==
LOC: ED 11:16 → OR 15:37 → 3N 15:37
DX: E66.9 Obesity, unspecified; Z68.39 Body mass index [BMI] 39.0-39.9, adult; K81.9 Cholecystitis, unspecified; D72.829 Elevated white blood cell count, unspecified; K42.9 Umbilical hernia without obstruction or gangrene; I10 Essential (primary) hypertension; Z88.5 Allergy status to narcotic agent; Z88.0 Allergy status to penicillin